=== PATIENT | male | born 1960 | race Two or more races ===

== ENCOUNTER 2025-03-25 12:24 | Emergency (ER) | payer MEDICAID, SELFPAY ==
[2025-03-25 12:50] VITALS: BP 123/79; PULSE 88; RESP 18; TEMP 36.7; O2SAT 97; BMI 29.0
--- NOTE | 2025-03-25 12:57 | PD.EDRME ---
Rapid Medical Screening Exam RME Arrival date/time: 03/25/25 12:24 64-year-old male presents to the emergency department today for complaints of itching Chief Complaint: Skin/Abscess/Foreign Body Vital signs: Vital Signs Temperature 98.1 F 03/25/25 12:50 Pulse Rate 88 03/25/25 12:50 Respiratory Rate 18 03/25/25 12:50 Blood Pressure 123/79 03/25/25 12:50 Pulse Oximetry (%) 97 03/25/25 12:50 Oxygen Delivery Method Room Air 03/25/25 12:50 Vital signs reviewed by provider: Yes Exam: On exam patient has diffuse psoriasis and itching Clinical Impression: Lab work ordered medication ordered
[2025-03-25] MEDS: IBUPROFEN TAB 400 MG TABLET 800 MG PO (13:11)
[2025-03-25] MEDS: DEXAMETHASONE SOD PHOS INJ 10 MG/ML VIAL PO (13:13)
--- NOTE | 2025-03-25 13:35 | EDNOTE_ITS ---
<Statement entered by Mariya Limon MD - 03/25/25 16:03> As co-signing physician, I was present and available for consult prn. I concur with the plan and care as documented by the midlevel provider. ED General RME/HPI General Chief complaint: Skin/Abscess/Foreign Body Stated complaint: GENERALIZED ITCHING, BONE PAIN Time Seen by Provider: 03/25/25 13:34 Arrival date/time: 03/25/25 12:24 64-year-old male patient was brought in by family for evaluation regarding bilateral lower leg redness and itchiness. Patient also complained of bilateral knee pain. This been ongoing for several weeks. Patient was diagnosed with psoriasis, currently not on medication , not seen a dermatol ogist. Patient is ambulatory. Pain is described as dull ache, severity moderate. Patient denies any fever. RME / HPI RME / HPI narrative: 03/25/25 12:24 64-year-old male presents to the emergency department today for complaints of itching Exam: On exam patient has diffuse psoriasis and itching Impression: Lab work ordered medication ordered Related Data Home Medications ?Medication ?Instructions ?Recorded ?Confirmed LORATADINE (CLARITIN) 10 mg PO QDAY PRN ALLERGY ## 0 10/20/14 cephalexin 500 mg capsule (Keflex) 500 mg PO BID INFEC TION #0 caps 10/20/14 furosemide 20 mg tablet 20 mg PO QDAY Diuretic ##0 0 10/20/14 potassium chloride 10 mEq 10 meq PO BID SUPPLEMENT #0 tabs 10/20/14 tablet,extended release (Klor-Con) prednisone 20 mg tablet 20 mg PO BID Inflammation ## 0 10/20/14 Previous Rx's ?Medication ?Instructions ?Recorded Sulfamethoxazole/Trimethoprim DS * 1 tab PO BID #20 ta bs 10/20/14 (BACTRIM DS *) acetaminophen 300 mg-codeine 30 mg 1 tab PO TID PRN pa in #20 tabs 03/25/25 tablet doxycycline monohydrate 100 mg 100 mg PO BID #14 caps 03/25/25 capsule prednisone 20 mg tablet See Taper PO QDAY #60 tabs 1 05/25/24 Allergies Allergy/AdvReac Type Severity Reaction Status Date / Time No Known Allergies Allergy Verified 03/25/25 12:30 Review of Systems Review of Systems Narrative Review of Systems: Review of system reviewed and within normal limits except mentioned in HPI ED Exam Narrative Physical exam: VITAL SIGNS: Reviewed. GENERAL APPEARANCE: Alert and interactive, follows commands, no acute distress, HEAD AND FACE: Non-traumatic. ENT: PERRL, pink conjunctivitis, eyelid no trauma, Mucous membrane moist. NECK: Supple, nontender, no nuchal rigidity. CHEST: No tenderness, no crepitus, no paradoxical movement, no retractions. LUNGS: Clear, well ventilated, symmetric, no rales, no wheezing, no ronchi, no stridor, good breath sounds bilaterally. HEART: Regular rate, regular rhythm, no murmur, no gallops. ABDOMEN: Soft, positive bowel sounds, nondistended, no guarding, nontender, no rebound, no masses, RECTAL: Deferred. GENITAL: Deferred. NEUROLOGICAL: Gross motor function intact sensory function intact, Appropriate for age. MUSCULOSKELETAL: low back nontender, full range of motion. EXTREMITIES: Multiple scaly rashes noted on the bilateral lower extremity, upper extremity, with redness bilateral lower extremity tenderness to the knee joints, no swelling no deformity, full range of motion. Distal neurovascular status intact SKIN: Color pink, dry, no rash, no lacerations, no abrasions, no contusions. LYMPHATICS: Deferred. Course Quality Measures none Orders Category Date Time Status CBC Stat Lab 03/25/25 13:25 Completed CMP [Comprehensive Metabolic Panel] Stat Lab 03/25/25 13:25 Completed Clindamycin Vial [Cleocin vial] Med 03/25/25 13:34 Discontinued 600 mg IM X1 ONE Dexamethasone Inj [Decadron Inj] Med 03/25/25 12:56 Discontinued 10 mg PO X1 ONE DiphenhydrAMINE [Benadryl] Med 03/25/25 12:56 Discontinued 25 mg PO X1 ONE HYDROcodone/APAP 10/325 [[place] 10/325] Med 03/25/25 13:34 Discontinued 1 tab PO X1 ONE Ibuprofen Tab [Motrin Tab] Med 03/25/25 12:56 Discontinued 800 mg PO X1 ONE Vital Signs Vital signs: Vital Signs Temperature 98.1 F 03/25/25 12:50 Pulse Rate 88 03/25/25 12:50 Respiratory Rate 18 03/25/25 12:50 Blood Pressure 123/79 03/25/25 12:50 Pulse Oximetry (%) 97 03/25/25 12:50 Oxygen Delivery Method Room Air 03/25/25 12:50 Discharge Plan Plan Patient Disposition: HOME (Self Care) Discharge Disposition comment: stable Prescriptions/Referrals Prescriptions/Med Rec: New doxycycline monohydrate 100 mg capsule 100 mg PO BID Qty: 14 0RF prednisone 20 mg tablet See Taper PO QDAY Qty: 60 0RF Taper: Prednisone Taper 20 mg DAILY for 2 Days and 0 Hour 10 mg DAILY for 2 Days and 0 Hour 5 mg DAILY for 7 Days and 0 Hour acetaminophen-codeine 300-30 mg tablet 1 tab PO TID PRN (Reason: pain) Qty: 20 0RF No Action prednisone 20 MG tablet 20 mg PO BID Qty: 0 cephalexin [Keflex] 500 MG capsule 500 mg PO BID Qty: 0 furosemide 20 MG tablet 20 mg PO QDAY Qty: 0 LORATADINE (CLARITIN) 10 MG capsule 10 mg PO QDAY PRN (Reason: ALLERGY) Qty: 0 potassium chloride [Klor-Con 10] 10 MEQ tablet extended release 10 meq PO BID Qty: 0 Sulfamethoxazole/Trimethoprim DS * (BACTRIM DS *) 1 TAB tablet 1 tab PO BID Qty: 20 0RF Problem List Clinical Impression: Psoriasis, Bilateral cellulitis of lower leg Patient/Caregiver Discharge Instructions Discharge Activity: activity as tolerated Education Materials: ED Cellulitis, ED Psoriasis Additional Instructions: Thank you for the opportunity for serving you today. You are stable for discharged . You are advised to: Follow-up with your PCP in 1 to 2 days ask for referral to [facility] Return to ED for worsening of symptoms Increase oral fluids Take medication as prescribed Print Language: Portuguese Stand Alone Forms: Janeen Award Info., Patient Portal Info Letter WILLIAM/HORACIO Supervising Physician WILLIAM/HORACIO Supervising Physician: MD Mariposa MDM Narrative MDM hospital course (for use when minimal MDM required): 03/25/25 12:24 64-year-old male patient was brought in by family for evaluation regarding bilateral lower leg redness and itchiness. Patient also complained of bilateral knee pain. This been ongoing for several weeks. Patient was diagnosed with psoriasis, currently not on medication , not seen a dermatolog ist. Patient is ambulatory. Pain is described as dull ache, severity moderate. Patient denies any fever. Patient's laboratory workup all came back unremarkable. Patient is probably having cellulitis bilateral lower extremities. Patient was given clindamycin IM, Decadron, [place] and Motrin. Stable for discharge home advised him to follow-up with [facility]. Medication Administration(s) Medication Administration History Discontinued Medications Hydrocodone Bitart/Acetaminophen (Hydrocodone/Apap 10/325 Tab) 1 tab PO X1 ONE Stop: 03/25/25 13:35 Last Admin: 03/25/25 14:06 Dose: 1 tab Documented By: Clindamycin Phosphate (Clindamycin Phos Inj 150 Mg/Ml Vial 6 Ml) 600 mg IM X1 ONE Stop: 03/25/25 13:35 Last Admin: 03/25/25 14:06 Dose: 600 mg Documented By: Dexamethasone Sodium Phosphate (Dexamethasone Sod Phos Inj 10 Mg/Ml Vial) 10 mg PO X1 ONE Stop: 03/25/25 12:57 Last Admin: 03/25/25 13:13 Dose: 10 mg Documented By: Diphenhydramine HCl (Diphenhydramine 25 Mg Capsule) 25 mg PO X1 ONE Stop: 03/25/25 12:57 Last Admin: 03/25/25 13:11 Dose: 25 mg Documented By: Ibuprofen (Ibuprofen Tab 400 Mg Tablet) 800 mg PO X1 ONE Stop: 03/25/25 12:57 Last Admin: 03/25/25 13:11 Dose: 800 mg Documented By: Diagnosis Differential Diagnosis ED Complaint MDM: Psoriasis, cellulitis Diagnoses ruled out and/or further discussions: Psoriasis, cellulitis
[2025-03-25 13:50] LABS: Basophils # (Auto) 0.0 Thou/mm3 (0.0-0.2); Basophils % (Auto) 0 % (0-2.5); Eosinophils # (Auto) 0.3 Thou/mm3 (0.0-0.5); Eosinophils % (Auto) 3 % (0-10); Hematocrit 39.1 % (41.0-53.0); Hemoglobin 12.8 g/dL (13.5-16.0); Immature Granulocytes Auto 0.03 Thou/mm3 (0.00-0.00); Lymphocytes # (Auto) 1.1 Thou/mm3 (1.0-4.8); Lymphocytes % (Auto) 11 % (10-50); Mean Corpuscular HGB Conc 32.7 g/dl (31.0-37.0); Mean Corpuscular Hemoglobin 30.6 pg (25.0-35.0); Mean Corpuscular Volume 94 fL (80-100); Monocytes # (Auto) 0.6 Thou/mm3 (0.0-0.8); Monocytes % (Auto) 6 % (0-12); Neutrophils # (Auto) 8.0 Thou/mm3 (1.8-7.7); Neutrophils % (Auto) 80 % (37-80); Nucleated Red Blood Cell # 0.00 Thou/mm3 (0.00-0.00); Nucleated Red Blood Cell % 0 /100 WBC (0); Platelet Count 294 Thou/mm3 (140-440); RDW Standard Deviation 44.5 fL (35.1-43.9); Red Blood Count 4.18 Miln/mm3 (4.50-5.90); White Blood Count 10.0 Thou/mm3 (3.8-10.6)
[2025-03-25 14:02] LABS: Alanine Aminotransferase 11 U/L (10-49); Albumin, Serum 4.4 gm/dL (3.4-4.8); Albumin/Globulin Ratio 1.6 (1.2-2.2); Alkaline Phosphatase 74 U/L (46-116); Anion Gap 10 (7-16); Aspartate Amino Transferase 25 U/L (0-34); BUN/Creatinine Ratio 10 Ratio (12-20); Bilirubin,Total 0.6 mg/dL (0.3-1.2); Blood Urea Nitrogen 12 mg/dL (9-23); Calcium 9.3 mg/dL (8.3-10.6); Calcium (Corrected) 9.3 mg/dL (8.5-10.1); Carbon Dioxide 27.4 mMol/L (20.0-31.0); Chloride 104 mMol/L (98-107); Creatinine (Component) 1.2 mg/dL (0.6-1.3); Estimated Creatinine Clearance 63.6 mL/min (>60); Globulin 2.7 gm/dL (2.3-3.5); Glucose 99 mg/dL (74-106); Osmolality,Calculated 280 (275-295); Potassium 4.2 mMol/L (3.4-5.1); Sodium 141 mMol/L (136-145); Total Protein 7.1 gm/dL (5.7-8.2); eGFR > 60 See Note
[2025-03-25] MEDS: CLINDAMYCIN PHOS INJ 150 MG/ML VIAL 6 ML 600 MG IM (14:06)
== END 2025-03-25 14:27 | disposition home or self-care (01) ==
PROVIDERS: Nurse Practitioner Primary Care; Emergency Provider Emergency Medicine
DX: L03.115 Cellulitis of right lower limb (principal); L03.116 Cellulitis of left lower limb; L40.9 Psoriasis, unspecified
CPT/HCPCS: 36415; 80053; 85025; 96372; 99283; J0736; J1100; A9270